=== PATIENT | female | born 1975 | race Caucasian/White ===

== ENCOUNTER 2016-12-09 17:17 | Emergency (ER) | payer OTHER ==
--- NOTE | 2016-12-09 19:13 | RAD ---
ANKLE-RIGHT 3 VIEW COMPARISON: Right ankle 3 views, 11/04/2012 HISTORY: Right ankle injury while ascending stairs. FINDINGS Views: Right ankle AP, mortise, lateral. Bones: Normal Joints: Normal Soft tissues: Mild lateral soft tissue swelling. IMPRESSION: 1. No fracture. Mild lateral soft tissue swelling.
== END 2016-12-09 18:59 | disposition home or self-care (01) ==
LOC: ED 17:17
DX: S93.401A Sprain of unspecified ligament of right ankle, initial encounter (principal); J45.909 Unspecified asthma, uncomplicated; E66.9 Obesity, unspecified; E11.9 Type 2 diabetes mellitus without complications; Z79.84 Long term (current) use of oral hypoglycemic drugs; W10.9XXA Fall (on) (from) unspecified stairs and steps, initial encounter; Y92.9 Unspecified place or not applicable